=== PATIENT | female | born 1945 | race Caucasian/White ===

== ENCOUNTER 2017-07-14 13:00 | Emergency (ER) | payer MEDICARE, OTHER ==
[2017-07-14] MEDS ORDERED: Acetaminophen/Codeine 30-300mg Tablet ONE (13:18)
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
== END 2017-07-14 14:27 | disposition home or self-care (01) ==
LOC: NAV ERS 13:00
DX: S16.1XXA Strain of muscle, fascia and tendon at neck level, initial encounter (principal); G44.309 Post-traumatic headache, unspecified, not intractable; I10 Essential (primary) hypertension; J44.9 Chronic obstructive pulmonary disease, unspecified; F32.9 Major depressive disorder, single episode, unspecified; Z79.899 Other long term (current) drug therapy; Z79.82 Long term (current) use of aspirin; V89.2XXA Person injured in unspecified motor-vehicle accident, traffic, initial encounter
CPT/HCPCS: 70450; 72125

== ENCOUNTER 2018-01-28 22:29 | Emergency (ER) | payer MEDICARE ==
[2018-01-28 23:07] LABS: ALT (SGPT) 20 U/L (8-55); AST (SGOT) 47 U/L (5-34); Albumin 4.3 g/dL (3.4-4.8); Alkaline Phosphatase 129 U/L (40-150); Anion Gap 17 mmol/L (10-20); BUN (Urea Nitrogen) 26 mg/dL (9.8-20.1); Bilirubin, Total 0.6 mg/dL (0.2-1.2); Calc. Creatinine Clearance 0 mL/min (70-130); Calcium 9.3 mg/dL (7.8-10.44); Carbon Dioxide 25 mmol/L (23-31); Chloride 101 mmol/L (98-107); Estimated GFR-MDRD 24; Globulin 2.7 g/dL (2.4-3.5); Glucose 128 mg/dL (83-110); Potassium 3.3 mmol/L (3.5-5.1); Sodium 140 mmol/L (136-145)
[2018-01-28 23:08] LABS: Anisocytosis SLIGHT = 6-15 cells (100X) (0-5/hpf); Band 37 % (5-11); Eosinophils 10 % (0-10); Hemoglobin 9.2 g/dL (12.0-16.0); Hypochromia SLIGHT = 6-15 cells (100X) (0-5/hpf); Lymphocytes 4 % (21-51); MDiff Complete? YES; Macrocytosis SLIGHT = 6-15 cells (100X) (0-5/hpf); Mean Corpuscular Hemoglobin 34.4 pg (27.0-31.0); Mean Platelet Volume 7.3 fL (7.4-10.4); Metamyelocyte 5 % (0-0); Monocytes 2 % (0-10); Myelocyte 1 % (0-0); Neutrophil 41 % (42-75); Nucleated RBC 1 % (0); Ovalocytes SLIGHT = 2-5 cells (100X) (0-1/hpf); PLT Morphology Comment Appears Increased; Platelet Count 621 thou/uL (130-400); Poikilocytosis SLIGHT = 6-15 cells (100X) (0-5/hpf); Polychromasia SLIGHT = 2-3 cells (100X) (0-2/hpf); RBC Distribution Width 15.9 % (11.5-14.5); Red Blood Cell (RBC) Count 2.68 mill/uL (4.20-5.40); White Blood Cell (WBC) Count 44.7 thou/uL (4.8-10.8)
[2018-01-28 23:09] LABS: CKMB 2.7 ng/mL (0-6.6); Troponin I 0.018 ng/mL (< 0.028)
--- NOTE | 2018-01-28 23:30 | CT ---
CT OF THE BRAIN WITHOUT CONTRAST: 01/28/18 COMPARISON: 07/14/17 HISTORY: Chest pain and left arm numbness. TECHNIQUE: Multiple contiguous axial images were obtained in a CT of the brain without contrast. FINDINGS: There is scattered hypodensities in the subcortical and periventricular white matter likely secondary to small vessel ischemic disease. No large confluent infarction is seen. There is no evidence of hyd rocephalus, intracranial hemorrhage or extra-axial fluid collection. The calvarium and overlying soft tissues are unremarkable. Fluid is seen in some of the posterior rig ht ethmoid air cells. The other paranasal sinuses and mastoid air cells are well aerated. IMPRESSION: No evidence of acute intracranial abnormality. POS: [facility]
--- NOTE | 2018-01-28 23:31 | RAD ---
TWO VIEWS OF THE CHEST: 01/28/18 COMPARISON: 07/10/15 HISTORY: Chest pain and left arm numbness. FINDINGS: Two views of the chest show normal sized cardiomediastinal silhouette. Increased interstitial marking s are present. There is no evidence of consolidation, mass, or pleural effusion. IMPRESSION: No evidence of acute cardiopulmonary disease. POS: [facility]
--- NOTE | 2018-01-28 23:35 | CT ---
CT CERVICAL SPINE WITHOUT CONTRAST: 01/28/18 COMPARISON: 07/14/17 HISTORY: Chest pain and left arm numbness. TECHNIQUE: Multiple contiguous axial images were obtained in a CT of the cervical spine without contrast. Sagitt al and coronal reformats were performed. FINDINGS: There are moderate degenerative changes in the lower cervical spine. The vertebral bodies demonstrate normal height without facture or subluxation. No prevertebral soft tissue swelling is seen. The posterior facets are well aligned. Normal alignment of the skull base with the cervical spine is seen. IMPRESSION: No evidence of acute osseous abnormality of the cervical spine. POS: [facility]
[2018-01-29 02:37] LABS: CKMB 2.7 ng/mL (0-6.6); Troponin I 0.025 ng/mL (< 0.028)
== END 2018-01-29 02:55 | disposition home or self-care (01) ==
LOC: NAV ERS 22:29
DX: R07.2 Precordial pain (principal); D72.829 Elevated white blood cell count, unspecified; R20.2 Paresthesia of skin; E78.5 Hyperlipidemia, unspecified; F32.9 Major depressive disorder, single episode, unspecified; Z79.899 Other long term (current) drug therapy; Z79.82 Long term (current) use of aspirin
CPT/HCPCS: 70450; 71046; 72125; 80053; 82553; 83880; 84484; 85025; 85379; 93005

== ENCOUNTER 2018-02-15 10:04 | Outpatient (CLI) | payer MEDICARE ==
--- NOTE | 2018-02-15 12:28 | ULT ---
ULTRASOUND RIGHT NECK: History: Cervical adenopathy. Comparison: None. FINDINGS: Limited evaluation of the right neck demonstrates no abnormal adenopathy. IMPRESSION: No adenopathy appreciated. POS: [facility]
== END 2018-02-15 10:05 | disposition home or self-care (01) ==
LOC: NAV ULT 10:04
PROVIDERS: ATTEND Nurse Practitioner Family
DX: R59.0 Localized enlarged lymph nodes (principal)
CPT/HCPCS: 76999

== ENCOUNTER 2018-06-12 21:54 | Emergency (ER) | payer MEDICARE ==
[2018-06-12] MEDS ORDERED: Sodium Chloride 0.9% 500 ML ONE (22:45)
[2018-06-12 23:02] LABS: Band 18 % (5-11); Eosinophils 4 % (0-10); Hemoglobin 7.3 g/dL (12.0-16.0); Lymphocytes 7 % (21-51); MDiff Complete? YES; Mean Corpuscular HGB CONC 33.3 g/dL (32.0-36.0); Mean Corpuscular Hemoglobin 32.8 pg (27.0-31.0); Mean Corpuscular Volume 98.6 fL (78.0-98.0); Mean Platelet Volume 7.7 fL (7.4-10.4); Monocytes 4 % (0-10); Neutrophil 67 % (42-75); Platelet Count 239 thou/uL (130-400); Platelet Morphology Comment Appears Adequate; RBC Distribution Width 19.3 % (11.5-14.5); RBC Morphology Normal; Red Blood Cell (RBC) Count 2.23 mill/uL (4.20-5.40); White Blood Cell (WBC) Count 59.2 thou/uL (4.8-10.8)
--- NOTE | 2018-06-12 23:06 | RAD ---
Exam: Chest one view: HISTORY: Chest pain COMPARISON: 01/28/2018 FINDINGS: Monitor leads overlie the chest. Borderline heart size. No confluent pneumonia, overt edema, or pleur al effusion. IMPRESSION: No acute intrathoracic disease. Atherosclerosis of the aorta. Stable from prior study.
[2018-06-12 23:10] LABS: ALT (SGPT) 27 U/L (8-55); AST (SGOT) 43 U/L (5-34); Albumin 4.3 g/dL (3.4-4.8); Alkaline Phosphatase 225 U/L (40-150); Anion Gap 16 mmol/L (10-20); BUN (Urea Nitrogen) 19 mg/dL (9.8-20.1); Bilirubin, Total 0.7 mg/dL (0.2-1.2); Calc. Creatinine Clearance 0 mL/min (70-130); Calcium 9.5 mg/dL (7.8-10.44); Carbon Dioxide 27 mmol/L (23-31); Chloride 97 mmol/L (98-107); Estimated GFR-MDRD 44; Globulin 2.6 g/dL (2.4-3.5); Glucose 117 mg/dL (83-110); Potassium 3.6 mmol/L (3.5-5.1); Protein, Total 6.9 g/dL (6.0-8.3); Sodium 136 mmol/L (136-145)
[2018-06-12 23:13] LABS: Reflex for Review?? YES
[2018-06-12 23:27] LABS: Bilirubin Negative (Negative); Blood, Urine Trace (Negative); Clarity Clear (Clear); Glucose, Urine (Dipstick) Negative (Negative); Leukocyte Small (Negative); Nitrite Negative (Negative); Protein, Urine (Dipstick) 100 mg/dL (Neg-Trace); Specific Gravity, Urine 1.015 (1.005-1.030); Urobilinogen 0.2 mg/dL (0.2-1.0)
[2018-06-12 23:28] LABS: Bacteria/HPF Rare-Few HPF (None Seen); Squamous Epithelial 0-3 HPF (0-3)
== END 2018-06-13 00:29 | disposition short-term general hospital (02) ==
LOC: NAV ERS 21:54
DX: D64.9 Anemia, unspecified (principal); D72.829 Elevated white blood cell count, unspecified; E78.5 Hyperlipidemia, unspecified; I10 Essential (primary) hypertension; J44.9 Chronic obstructive pulmonary disease, unspecified; F32.9 Major depressive disorder, single episode, unspecified; Z79.899 Other long term (current) drug therapy
CPT/HCPCS: 36415; 71045; 80053; 81003; 81015; 83605; 83880; 84484; 85025; 85060; 87040; 87804; 93005; 94640; 96360; J7050; J7620

== ENCOUNTER 2018-10-01 15:10 | Emergency (ER) | payer MEDICARE ==
[2018-10-01 16:13] LABS: ALT (SGPT) 25 U/L (8-55); AST (SGOT) 34 U/L (5-34); Albumin 4.1 g/dL (3.4-4.8); Alkaline Phosphatase 239 U/L (40-150); Anion Gap 18 mmol/L (10-20); BUN (Urea Nitrogen) 16 mg/dL (9.8-20.1); Bilirubin, Total 1.1 mg/dL (0.2-1.2); Calc. Creatinine Clearance 0 mL/min (70-130); Calcium 8.8 mg/dL (7.8-10.44); Carbon Dioxide 23 mmol/L (23-31); Chloride 98 mmol/L (98-107); Estimated GFR-MDRD 46; Globulin 2.6 g/dL (2.4-3.5); Glucose 106 mg/dL (83-110); Lipase 65 U/L (8-78); Protein, Total 6.7 g/dL (6.0-8.3); Sodium 135 mmol/L (136-145)
[2018-10-01 16:17] LABS: Bilirubin Negative (Negative); Blood, Urine Trace (Negative); Clarity Clear (Clear); Glucose, Urine (Dipstick) Negative (Negative); Leukocyte Negative (Negative); Nitrite Negative (Negative); Protein, Urine (Dipstick) > or equal to 300 mg/dL (Neg-Trace); Urobilinogen > or = 8.0 mg/dL (Less than 2)
[2018-10-01 16:28] LABS: Anisocytosis MARKED = >30 cells (100X) (0-5/hpf); Band 11 % (5-11); Eosinophils 1 % (0-10); Hemoglobin 9.1 g/dL (12.0-16.0); Lymphocytes 4 % (21-51); MDiff Complete? YES; Mean Corpuscular HGB CONC 32.2 g/dL (32.0-36.0); Mean Corpuscular Hemoglobin 31.4 pg (27.0-31.0); Mean Corpuscular Volume 97.4 fL (78.0-98.0); Mean Platelet Volume 9.5 fL (7.4-10.4); Monocytes 3 % (0-10); Neutrophil 74 % (42-75); Platelet Count 207 thou/uL (130-400); Platelet Morphology Comment Appears Adequate; RBC Distribution Width 22.4 % (11.5-14.5); Reactive Lymphocytes 4 % (0-10); Red Blood Cell (RBC) Count 2.91 mill/uL (4.20-5.40); Stomatocytes SLIGHT = 2-5 cells (100X) (0-1/hpf); White Blood Cell (WBC) Count 98.2 thou/uL (4.8-10.8)
[2018-10-01 16:38] LABS: RBC/HPF 0-3 HPF (0-3); Squamous Epithelial 0-3 HPF (0-3); WBC/HPF 0-3 HPF (0-3)
[2018-10-01] MEDS ORDERED: Ondansetron PF 4 MG/2 ML Vial ONE (16:52)
[2018-10-01] MEDS ORDERED: Morphine 4 MG/ML VIAL ONE (16:52)
--- NOTE | 2018-10-01 17:32 | CT ---
CHEST, ABDOMEN, AND PELVIC CT SCAN WITHOUT IV CONTRAST: History: Pain, history of mastocytosis, undergoing chemotherapy. Abdominal pain and diarrhea. Comparison: 12-30-15 CT FINDINGS: Exam is severely limited because of the lack of IV and oral contrast. There is also motion artifact, particularly in the region of the chest and upper abdomen. There are multiple small reticular nodular foci within the right lung including the upper lobe, mid lung zone and right lower lobe with a small right pleural effusion. These findings are nonspecific but could suggest infection or inflammation o r could possibly be related to some chronic change. 0.9 cm somewhat ground glass opacity seen in the right mid lung zone along the minor fissure, nonspecific. There is minimal cardiomegaly. Probable sma ll pericardial effusion. Status post cholecystectomy. No focal liver masses. Splenomegaly with the spleen measuring 18 cm in c raniocaudal length. Visualized pancreas, adrenal glands, and kidneys are unremarkable. No renal calcu mindy or acute obstruction. There is some fluid and some borderline sized small bowel loops as well as scattered fluid in the colon, particularly the right colon, with possible mild bowel wall thickeni ng, nonspecific, possibly some enterocolitis. Approximately 3.2 cm diameter thin walled cyst in the r ight posterior pelvis. Colonic diverticulosis in the sigmoid colon without acute diverticulitis. IMPRESSION: 1. Numerous scattered nodular and reticular nodular parenchymal changes bilaterally but mostly in the right lung including the upper lobe midlung zone and lower lobes, nonspecific. 0.9 cm pleural based ground glass opacity in the right mid lung zone along the minor fissure. Small right pleural effusion . Probable very small pericardial effusion. Minimal scattered soft tissue subcutaneous fat stranding, possibly related to anasarca. Splenomegaly. Some minimally dilated small bowel loops as well as flui d in the colon with possible mild wall thickening raising concern for minimal enterocolitis. Overall stable appearing right sided thin wall pelvic cyst. Colonic diverticulosis without acute diverticulit is. POS: [facility]
[2018-10-01] MEDS ORDERED: Sodium Chloride 0.9% 500 ML ONE (17:37)
[2018-10-01 18:11] LABS: Reflex for Review?? YES
== END 2018-10-01 19:55 | disposition short-term general hospital (02) ==
LOC: NAV ERS 15:10
DX: D72.829 Elevated white blood cell count, unspecified (principal); R00.0 Tachycardia, unspecified; R10.31 Right lower quadrant pain; R10.32 Left lower quadrant pain; I10 Essential (primary) hypertension; E78.5 Hyperlipidemia, unspecified; F32.9 Major depressive disorder, single episode, unspecified; Z79.899 Other long term (current) drug therapy; Z79.82 Long term (current) use of aspirin; J44.9 Chronic obstructive pulmonary disease, unspecified
CPT/HCPCS: 51701; 71250; 74177; 80053; 81003; 81015; 83605; 83690; 83880; 84484; 85025; 85060; 93005; 96361; 96374; 96375; A4353; J2270; J2405; J7050; J7620

== ENCOUNTER 2019-02-01 16:51 | Outpatient (CLI) | payer MEDICARE ==
[2019-02-01 17:28] LABS: Anisocytosis SLIGHT = 6-15 cells (100X) (0-5/hpf); Band 4 % (5-11); Eosinophils 14 % (0-10); Hemoglobin 5.9 g/dL (12.0-16.0); Lymphocytes 26 % (21-51); MDiff Complete? YES; Mean Corpuscular HGB CONC 34.3 g/dL (32.0-36.0); Mean Corpuscular Hemoglobin 32.4 pg (27.0-31.0); Mean Corpuscular Volume 94.4 fL (78.0-98.0); Mean Platelet Volume 11.1 fL (7.4-10.4); Monocytes 10 % (0-10); Neutrophil 46 % (42-75); Platelet Count 44 thou/uL (130-400); Platelet Morphology Comment Appears Decreased; RBC Distribution Width 17.2 % (11.5-14.5); Red Blood Cell (RBC) Count 1.81 mill/uL (4.20-5.40); White Blood Cell (WBC) Count 1.3 thou/uL (4.8-10.8)
== END 2019-02-01 16:52 | disposition home or self-care (01) ==
LOC: NAV LAB 16:51
PROVIDERS: ATTEND Internal Medicine Hematology & Oncology
DX: D47.1 Chronic myeloproliferative disease (principal); D47.02 Systemic mastocytosis

== ENCOUNTER 2019-02-08 13:30 | Outpatient (CLI) | payer MEDICARE ==
[2019-02-08 14:09] LABS: ALT (SGPT) 50 U/L (8-55); AST (SGOT) 35 U/L (5-34); Albumin 3.9 g/dL (3.4-4.8); Alkaline Phosphatase 632 U/L (40-110); Anion Gap 15 mmol/L (10-20); BUN (Urea Nitrogen) 36 mg/dL (9.8-20.1); Bilirubin, Total 0.5 mg/dL (0.2-1.2); Calc. Creatinine Clearance 0 mL/min (70-130); Calcium 8.9 mg/dL (7.8-10.44); Carbon Dioxide 29 mmol/L (23-31); Chloride 96 mmol/L (98-107); Estimated GFR-MDRD 67; Glucose 130 mg/dL (83-110); Potassium 3.2 mmol/L (3.5-5.1); Protein, Total 5.9 g/dL (6.0-8.3); Sodium 137 mmol/L (136-145)
[2019-02-08 14:23] LABS: Anisocytosis SLIGHT = 6-15 cells (100X) (0-5/hpf); Band 11 % (5-11); Eosinophils 8 % (0-10); Hemoglobin 7.9 g/dL (12.0-16.0); Hypochromia SLIGHT = 6-15 cells (100X) (0-5/hpf); Lymphocytes 29 % (21-51); MDiff Complete? YES; Macrocytosis SLIGHT = 6-15 cells (100X) (0-5/hpf); Mean Corpuscular HGB CONC 33.7 g/dL (32.0-36.0); Mean Corpuscular Hemoglobin 28.8 pg (27.0-31.0); Mean Corpuscular Volume 85.6 fL (78.0-98.0); Mean Platelet Volume 9.9 fL (7.4-10.4); Microcytosis SLIGHT = 6-15 cells (100X) (0-5/hpf); Monocytes 24 % (0-10); Neutrophil 26 % (42-75); Platelet Count 108 thou/uL (130-400); Platelet Morphology Comment Appears Decreased; RBC Distribution Width 17.4 % (11.5-14.5); Reactive Lymphocytes 1 % (0-10); Red Blood Cell (RBC) Count 2.74 mill/uL (4.20-5.40); White Blood Cell (WBC) Count 2.2 thou/uL (4.8-10.8)
[2019-02-08 14:47] LABS: Follow-up Chemistry Comp? YES; Follow-up Hematology Comp? YES; Follow-up Result - Chemistry REPORT FAXED; Follow-up Result - Hematology REPORT FAXED
== END 2019-02-08 13:31 | disposition home or self-care (01) ==
LOC: NAV LABSP 13:30
PROVIDERS: ATTEND Internal Medicine
DX: C94.6 Myelodysplastic disease, not elsewhere classified (principal); D47.1 Chronic myeloproliferative disease
CPT/HCPCS: 80053; 85025